=== PATIENT | female | born 1935 | race Caucasian/White ===

== ENCOUNTER 2019-08-13 10:55 | Emergency (ER) | payer MEDICARE, MEDICAID ==
[~2019-08-13] VITALS: Ht 160 cm; Wt 79.1 kg
--- NOTE | 2019-08-13 11:55 | NUR ---
US doppler tech at bedside for study as ordered.
[2019-08-13] MEDS ORDERED: CEPH500C5 PO (12:38)
[2019-08-13] MEDS ORDERED: SULF1TAB49 PO (12:38)
[2019-08-13 13:00] VITALS: BP 132/74
== END 2019-08-13 13:02 | disposition home or self-care (01) ==
LOC: ER 10:56
DX: L03.116 Cellulitis of left lower limb (principal); E03.9 Hypothyroidism, unspecified; Z98.890 Other specified postprocedural states
CPT/HCPCS: 93971; 99284

== ENCOUNTER 2019-09-21 13:27 | Inpatient (IN) | payer MEDICARE, MEDICAID ==
[2019-09-21] VITALS (7 sets, daily range): BP systolic 99–115; BP diastolic 36–54
[~2019-09-21] VITALS: Ht 160 cm; Wt 89.8 kg
[~2019-09-21 13:27] MED LIST: ASPI-611 PO; CALC500T11 PO; CITA10TA9 PO; FAMO20TA8 PO; LEVO75TA7 PO; POLY119P2 PO; SIMV10TA98 PO; TRAM50TA2 PO
[2019-09-21 14:25] LABS: BASOPHILS % (AUTO) 0.8 % (0-1); EOSINOPHILS # (AUTO) 0.1 X10'3 (0-0.9); EOSINOPHILS % (AUTO) 0.9 % (0-6); HEMATOCRIT 36.4 % (35.0-45.0); HEMOGLOBIN 11.7 g/dl (12.0-16.0); LYMPHOCYTES # (AUTO) 0.9 X10'3 (1.1-4.8); LYMPHOCYTES % (AUTO) 14.5 % (21-51); MEAN CORPUSCULAR HEMOGLOBIN 30.1 PG (27.0-31.0); MEAN CORPUSCULAR HGB CONC 32.1 g/dL (33.0-36.5); MEAN CORPUSCULAR VOLUME 93.9 FL (78-98); MEAN PLATELET VOLUME 7.7 FL (7.4-10.4); MONOCYTES # (AUTO) 0.8 X10'3 (0-0.9); MONOCYTES % (AUTO) 13.9 % (2-12); NEUTROPHILS # (AUTO) 4.3 X10'3 (1.8-7.7); NEUTROPHILS % (AUTO) 69.9 % (42-75); PLATELET COUNT 226 X10'3 (140-440); RED BLOOD COUNT 3.88 X10'6 (4.20-5.60); RED CELL DISTRIBUTION WIDTH 15.5 % (11.5-14.5); WHITE BLOOD COUNT 6.1 X10'3 (4.5-11.0)
[2019-09-21 14:39] LABS: D-DIMER 3.72 MG/L FEU (0-0.50); PARTIAL THROMBOPLASTIN TIME 26 SECONDS (22-32)
[2019-09-21 14:40] LABS: ALANINE AMINOTRANSFERASE 13 U/L (12-78); ALBUMIN 2.8 G/DL (3.4-5.0); ALBUMIN/GLOBULIN RATIO 0.7 (1.1-1.5); ALKALINE PHOSPHATASE 91 IU/L (46-116); ANION GAP 4 (8-16); ASPARTATE AMINO TRANSFERASE 40 U/L (10-37); BILIRUBIN,TOTAL 0.3 MG/DL (0.1-1.0); BLOOD UREA NITROGEN 26 MG/DL (7-18); BUN/CREATININE RATIO 29.9 (6.6-38.0); CALCIUM 8.6 MG/DL (8.5-10.1); CHLORIDE 102 MMOL/L (99-107); CREATININE 0.87 MG/DL (0.40-0.90); GLUCOSE 100 MG/DL (70-104); POTASSIUM 4.7 MMOL/L (3.5-5.1); SODIUM 136 MMOL/L (135-145); TOTAL CARBON DIOXIDE 30.2 MMOL/L (24-32); TOTAL PROTEIN 6.8 G/DL (6.4-8.2); eGFR 62 ML/MIN
[2019-09-21 14:47] LABS: MAGNESIUM 2.3 MG/DL (1.5-2.4)
[2019-09-21] MEDS ORDERED: heparin 1,000 UNITS/NS 500ml 500 ML ONE (15:24)
[2019-09-21] MEDS ORDERED: fentaNYL/PF 50MCG/1 ML 2ML syringe ONE (15:24)
[2019-09-21] MEDS ORDERED: midazolam 2 mg/2 ml injection ONE (15:24)
[2019-09-21] MEDS ORDERED: LIDOcaine 1%/PF 5ML 10 MG/ML VIAL ONE (15:24)
[2019-09-21] MEDS ORDERED: iohexol 300mg/ml 100ml inj. ONE (15:25)
[2019-09-21] MEDS ORDERED: iohexol 300 MG/1 ML 50ml polymer ONE (15:25)
[2019-09-21] MEDS ORDERED: LORazepam 2 mg/ml vial IV ONE (15:35)
[2019-09-21] MEDS ORDERED: magnesium hydroxide 30ml (MOM) UD suspension PO PRN (17:10)
[2019-09-21] MEDS ORDERED: morphine 4 MG/ML inj SYRINge IV PRN (17:10)
[2019-09-21] MEDS ORDERED: ondansetron/PF 4mg/2ml inj IV PRN (17:10)
[2019-09-21] MEDS: K, MAG and/or Phos replacement - Verify level? MC SCH (17:10)
[2019-09-21] MEDS ORDERED: acetaminophen 325mg tablet PO PRN ×2 (17:10)
[2019-09-21] MEDS ORDERED: potassium Cl 20 mEq SR tablet PO PRN ×2 (17:10)
--- NOTE | 2019-09-21 17:20 | NUR ---
Patient arrived to floor and placed on bedside monitor. Patient on 2l mask oxygen and answering questions, but slow to answer. TPA and Heparin infusing via sheath on left leg. Physical assessment performed and patient stable. Decreased breath sounds on right lobe, s1s2 heart sounds, distal pulses palpable, left pulse weaker. 2 RN skin check performed.
[2019-09-21] MEDS: tPA-cathflo 2mg/2ml IV flush 4 MG in normal saline 100ml IV soln 100 ML ICATH SCH ×2 (17:49→22:59)
[2019-09-21] MEDS: heparin 1,000 UNITS/NS 500ml 500 ML IV SCH (17:50)
--- NOTE | 2019-09-21 18:02 | NUR ---
Called Dr. Duke to confirm CT order: Overnight oral contrast okay. Also, aware patient incontinent; orders to use PureWick device and use PureWick for Urine sample source. Med rec completed with orders to continue all home orders.
[2019-09-21] MEDS ORDERED: traMADol 50MG tablet PO PRN (18:10)
--- NOTE | 2019-09-21 19:30 | NUR ---
SHEATH TO LEFT POPLITEAL VEIN IS LEAKING. NOTIFIED DR. VARGAS WHO INSTRUCTED TO TURN OFF HEPARIN. TPA STILL RUNNING.
[2019-09-21] MEDS ORDERED: diatr meglu/diatrizoate 30ml oral sol.-(3 dose) bottle PO ONE (21:00)
[2019-09-21] MEDS: calcium carbonate 500mg chew tablet PO SCH (21:10)
[2019-09-21 21:50] LABS: TOTAL PROTEIN,URINE RANDOM < 6.0 MG/DL
[2019-09-21 21:54] LABS: CLARITY,URINE CLEAR (Clear); COLOR,URINE YELLOW (Yellow); GLUCOSE, URINE NEGATIVE (Neg); KETONES,URINE NEGATIVE (Neg); LEUKOCYTE ESTERASE ,URINE TRACE (Neg); NITRITES, URINE NEGATIVE (Neg); OCCULT BLOOD,URINE NEGATIVE (Neg); PH,URINE 6.5 (4.8-8.0); PROTEIN,URINE NEGATIVE (Neg); UROBILINOGEN,URINE 0.2 E.U/dL (0.2-1.0)
[2019-09-21 22:00] LABS: UA COLLECTION TYPE CLN CATCH MIDSTREAM
[2019-09-21 22:01] LABS: BACTERIA,URINE NONE SEEN /HPF (Neg); RBC,URINE NONE SEEN /HPF (0-2); SQUAMOUS EPITHELIAL CELL,UR FEW /LPF (FEW); WBC,URINE 0-4 /HPF (0-4)
[2019-09-22] VITALS (27 sets, daily range): BP systolic 102–143; BP diastolic 37–93
[2019-09-22] MEDS: heparin 1,000 UNITS/NS 500ml 500 ML IV SCH (03:47)
[2019-09-22] MEDS ORDERED: LORazepam 2 mg/ml vial IV ONE (05:25)
[2019-09-22 05:54] LABS: BASOPHILS % (AUTO) 0.6 % (0-1); EOSINOPHILS # (AUTO) 0.1 X10'3 (0-0.9); HEMOGLOBIN 10.7 g/dl (12.0-16.0); LYMPHOCYTES # (AUTO) 0.7 X10'3 (1.1-4.8); MEAN PLATELET VOLUME 7.8 FL (7.4-10.4); MONOCYTES # (AUTO) 0.8 X10'3 (0-0.9); MONOCYTES % (AUTO) 14.8 % (2-12); PLATELET COUNT 210 X10'3 (140-440); RED CELL DISTRIBUTION WIDTH 15.5 % (11.5-14.5)
[2019-09-22 05:57] LABS: EOSINOPHILS % (AUTO) 1.1 % (0-6); LYMPHOCYTES % (AUTO) 13.7 % (21-51); MEAN CORPUSCULAR HEMOGLOBIN 30.4 PG (27.0-31.0); MEAN CORPUSCULAR HGB CONC 32.4 g/dL (33.0-36.5); MEAN CORPUSCULAR VOLUME 93.7 FL (78-98); NEUTROPHILS # (AUTO) 3.7 X10'3 (1.8-7.7); NEUTROPHILS % (AUTO) 69.8 % (42-75); RED BLOOD COUNT 3.52 X10'6 (4.20-5.60); WHITE BLOOD COUNT 5.3 X10'3 (4.5-11.0)
[2019-09-22 06:16] LABS: PARTIAL THROMBOPLASTIN TIME 27 SECONDS (22-32)
[2019-09-22 06:38] LABS: ALANINE AMINOTRANSFERASE 14 U/L (12-78); ALBUMIN 2.6 G/DL (3.4-5.0); ALBUMIN/GLOBULIN RATIO 0.7 (1.1-1.5); ALKALINE PHOSPHATASE 88 IU/L (46-116); ANION GAP 5 (8-16); ASPARTATE AMINO TRANSFERASE 42 U/L (10-37); BILIRUBIN,TOTAL 0.4 MG/DL (0.1-1.0); BLOOD UREA NITROGEN 21 MG/DL (7-18); BUN/CREATININE RATIO 25.9 (6.6-38.0); CALCIUM 8.2 MG/DL (8.5-10.1); CHLORIDE 103 MMOL/L (99-107); CREATININE 0.81 MG/DL (0.40-0.90); GLUCOSE 103 MG/DL (70-104); LACTATE DEHYDROGENASE 293 U/L (81-234); MAGNESIUM 2.3 MG/DL (1.5-2.4); PHOSPHORUS 3.1 MG/DL (2.3-4.5); POTASSIUM 4.4 MMOL/L (3.5-5.1); SODIUM 137 MMOL/L (135-145); TOTAL CARBON DIOXIDE 29.2 MMOL/L (24-32); TOTAL PROTEIN 6.3 G/DL (6.4-8.2); eGFR 67 ML/MIN
[2019-09-22] MEDS: calcium carbonate 500mg chew tablet PO SCH ×2 (07:16→19:53)
[2019-09-22] MEDS: atorvastatin 10mg tablet PO SCH (07:17)
[2019-09-22] MEDS: famotidine 20mg tablet PO SCH (07:17)
[2019-09-22] MEDS: levoTHYROXINE 75mcg tablet PO SCH (07:17)
[2019-09-22] MEDS: aspirin 81mg tablet.DR PO SCH (07:17)
[2019-09-22] MEDS: CITALOpram 10mg tablet PO SCH (07:18)
[2019-09-22] MEDS: polyethylene glycol 3350 17gm powd pack PO SCH (07:29)
[2019-09-22] MEDS: K, MAG and/or Phos replacement - Verify level? MC SCH (08:00)
[2019-09-22] MEDS ORDERED: iohexol 300mg/ml 100ml inj. ONE ×3 (08:23→10:34)
[2019-09-22] MEDS: tPA-cathflo 2mg/2ml IV flush 4 MG in normal saline 100ml IV soln 100 ML ICATH SCH ×2 (08:36→15:17)
[2019-09-22] MEDS: morphine 2 MG/ML inj. syringe IV PRN ×2 (08:40→19:54)
[2019-09-22] MEDS ORDERED: fentaNYL/PF 50MCG/1 ML 2ML syringe ONE (08:43)
[2019-09-22] MEDS ORDERED: midazolam 2 mg/2 ml injection ONE (08:43)
[2019-09-22] MEDS ORDERED: heparin 1,000 UNITS/NS 500ml 500 ML ONE (08:44)
[2019-09-22] MEDS: apixaban 5mg tablet PO SCH ×2 (12:47→19:53)
--- NOTE | 2019-09-22 17:21 | NUR ---
patient has not voided in the last 6 hours. she also has not eaten or drank today and is not on IV fluids. Bladder scan shows 388. Called Dr Duke. Orders to watch her for now since her kidney function looks ok and she does have some urine in her bladder.
[2019-09-22] MEDS: LORazepam 2 mg/ml vial IV PRN (17:55)
--- NOTE | 2019-09-22 22:00 | NUR ---
late entry, pt medicated for pain with good effects, hs cares given pt tolerated well.
--- NOTE | 2019-09-22 22:45 | NUR ---
1830 I have received report and assumed care of pt. pt resting in bed rise and fall of chest cavity equile and symmetrical. vs as charted. left leg remains slightly more swollen then the right, dorsals pulses are Doppler but strong. pt denies numbness and tingling.
[2019-09-23] VITALS (23 sets, daily range): BP systolic 97–120; BP diastolic 33–62
--- NOTE | 2019-09-23 01:30 | NUR ---
no changes in condition noted pt resting no s/sx of distress noted
--- NOTE | 2019-09-23 01:46 | NUR ---
report given to receiving Rn plan of care reviewed
--- NOTE | 2019-09-23 01:46 | NUR ---
Patient in room CICU 2011. I have received report from Francine Lal RN and had the opportunity to ask questions and assume patient care. Patient resting comfortably without signs of distress. Pedal pulses present to palpation bilaterally. Left leg noted to be larger than the right. Will continue to monitor.
[2019-09-23 05:39] LABS: BASOPHILS % (AUTO) 0.6 % (0-1); EOSINOPHILS # (AUTO) 0.1 X10'3 (0-0.9); EOSINOPHILS % (AUTO) 1.2 % (0-6); HEMATOCRIT 30.2 % (35.0-45.0); HEMOGLOBIN 9.8 g/dl (12.0-16.0); LYMPHOCYTES # (AUTO) 0.9 X10'3 (1.1-4.8); LYMPHOCYTES % (AUTO) 13.2 % (21-51); MEAN CORPUSCULAR HEMOGLOBIN 30.4 PG (27.0-31.0); MEAN CORPUSCULAR HGB CONC 32.5 g/dL (33.0-36.5); MEAN CORPUSCULAR VOLUME 93.5 FL (78-98); MEAN PLATELET VOLUME 7.7 FL (7.4-10.4); MONOCYTES # (AUTO) 1.1 X10'3 (0-0.9); MONOCYTES % (AUTO) 16.9 % (2-12); NEUTROPHILS # (AUTO) 4.6 X10'3 (1.8-7.7); NEUTROPHILS % (AUTO) 68.1 % (42-75); PLATELET COUNT 198 X10'3 (140-440); RED BLOOD COUNT 3.23 X10'6 (4.20-5.60); RED CELL DISTRIBUTION WIDTH 15.6 % (11.5-14.5); WHITE BLOOD COUNT 6.7 X10'3 (4.5-11.0)
[2019-09-23 05:45] LABS: ALANINE AMINOTRANSFERASE 11 U/L (12-78); ALBUMIN 2.5 G/DL (3.4-5.0); ALBUMIN/GLOBULIN RATIO 0.7 (1.1-1.5); ALKALINE PHOSPHATASE 82 IU/L (46-116); ANION GAP 4 (8-16); ASPARTATE AMINO TRANSFERASE 45 U/L (10-37); BILIRUBIN,TOTAL 0.5 MG/DL (0.1-1.0); BLOOD UREA NITROGEN 17 MG/DL (7-18); BUN/CREATININE RATIO 19.5 (6.6-38.0); CALCIUM 8.3 MG/DL (8.5-10.1); CHLORIDE 104 MMOL/L (99-107); CREATININE 0.87 MG/DL (0.40-0.90); GLUCOSE 103 MG/DL (70-104); MAGNESIUM 2.4 MG/DL (1.5-2.4); PHOSPHORUS 3.6 MG/DL (2.3-4.5); POTASSIUM 4.4 MMOL/L (3.5-5.1); SODIUM 138 MMOL/L (135-145); eGFR 62 ML/MIN
--- NOTE | 2019-09-23 06:26 | NUR ---
Problems reprioritized. Patient report given, questions answered & plan of care reviewed with JAYCOB Little.
--- NOTE | 2019-09-23 06:31 | NUR ---
Patient in room CICU 2011. I have received report from JAYCOB Kauffman and had the opportunity to ask questions and assume patient care. Patient currently resting in bed, VSS, no acute dsitress, will continue to monitor.
[2019-09-23] MEDS: K, MAG and/or Phos replacement - Verify level? MC SCH (08:00)
[2019-09-23] MEDS: levoTHYROXINE 75mcg tablet PO SCH (08:21)
[2019-09-23] MEDS: aspirin 81mg tablet.DR PO SCH (08:21)
[2019-09-23] MEDS: famotidine 20mg tablet PO SCH (08:21)
[2019-09-23] MEDS: apixaban 5mg tablet PO SCH ×2 (08:21→20:22)
[2019-09-23] MEDS: atorvastatin 10mg tablet PO SCH (08:21)
[2019-09-23] MEDS: CITALOpram 10mg tablet PO SCH (08:21)
[2019-09-23] MEDS: calcium carbonate 500mg chew tablet PO SCH ×2 (08:22→20:21)
[2019-09-23] MEDS: polyethylene glycol 3350 17gm powd pack PO SCH (08:22)
[2019-09-23] MEDS: LORazepam 2 mg/ml vial IV PRN (08:38)
--- NOTE | 2019-09-23 18:21 | NUR ---
Problems reprioritized. Patient report given, questions answered & plan of care reviewed with JAYCOB Kauffman.
--- NOTE | 2019-09-23 18:22 | NUR ---
Patient in room CICU 2011. I have received report from JAYCOB Little and had the opportunity to ask questions and assume patient care.
--- NOTE | 2019-09-23 18:40 | NUR ---
Patient resting in bed. Equal rise and fall of chest, in no signs of distress. Lung sound clear and equal. Patient awakens to verbal, is in good spirits. Patient does not want to eat dinner at this time. Will save try for a later time. Pulses intact via palpation to pedal pulses.
--- NOTE | 2019-09-23 20:45 | NUR ---
While turning patient to the left side to change linen, Patient states " Ouch!" When asked what was causing her pain patient tearful and states " my side" and gestures to her abdomen on her left lower side. Patient then states "I was so good this morning, why did you hurt me?" Explained to patient that we did not mean to cause her pain. Patient stated again "but I was so good." Discussed with charger who will place a social professionals consult.
[2019-09-24] VITALS (24 sets, daily range): BP systolic 100–134; BP diastolic 32–110
--- NOTE | 2019-09-24 01:33 | NUR ---
Patient picking at IV to right arm. Placed fabric arm sleeve over IV site.
--- NOTE | 2019-09-24 04:38 | NUR ---
0400 Patient c/o wanting to urinate but not being able to. Wick catheter in place. Patient also expressed the need to have a bowel movement. Placed on bedpan without success. Bladder scan was completed showing 325ml urine. Milk of Mag was administered as ordered for constipation. Patient able to urinate some after repositioning.
--- NOTE | 2019-09-24 05:00 | NUR ---
Patient suddenly agitated, calling out, shouting she "wants to go home!" crying not able to calm down. Ativan administered. Patient continued to become increasingly agitated, vital signs with bigeminy heart rate in the 110's. Oxygen saturation in the 80's. Morphine administered patient complaining of abdominal pain, unable to describe pain. Patient able to relax and rest. New IV to right forearm prior to morphine administration. Patient pulling at IV on left prior to IV becoming puffy. Patient placed on oxygen via nasal cannula at 4 lpm with increased in oxygen saturation to 99%. heart rate improved.
[2019-09-24 05:20] LABS: BASOPHILS % (AUTO) 0.4 % (0-1); EOSINOPHILS # (AUTO) 0.1 X10'3 (0-0.9); EOSINOPHILS % (AUTO) 1.5 % (0-6); HEMATOCRIT 30.4 % (35.0-45.0); HEMOGLOBIN 9.8 g/dl (12.0-16.0); LYMPHOCYTES # (AUTO) 0.8 X10'3 (1.1-4.8); LYMPHOCYTES % (AUTO) 11.6 % (21-51); MEAN CORPUSCULAR HEMOGLOBIN 30.2 PG (27.0-31.0); MEAN CORPUSCULAR HGB CONC 32.3 g/dL (33.0-36.5); MEAN CORPUSCULAR VOLUME 93.7 FL (78-98); MEAN PLATELET VOLUME 7.8 FL (7.4-10.4); MONOCYTES # (AUTO) 0.9 X10'3 (0-0.9); MONOCYTES % (AUTO) 13.2 % (2-12); NEUTROPHILS # (AUTO) 5.3 X10'3 (1.8-7.7); NEUTROPHILS % (AUTO) 73.3 % (42-75); PLATELET COUNT 209 X10'3 (140-440); RED BLOOD COUNT 3.24 X10'6 (4.20-5.60); RED CELL DISTRIBUTION WIDTH 15.6 % (11.5-14.5); WHITE BLOOD COUNT 7.2 X10'3 (4.5-11.0)
[2019-09-24] MEDS: LORazepam 2 mg/ml vial IV PRN ×2 (05:21→20:48)
[2019-09-24 05:28] LABS: PARTIAL THROMBOPLASTIN TIME 42 SECONDS (22-32)
[2019-09-24 06:04] LABS: GLUCOSE 144 MG/DL (70-104); SODIUM 136 MMOL/L (135-145)
[2019-09-24 06:05] LABS: ALANINE AMINOTRANSFERASE 14 U/L (12-78); ALBUMIN 2.6 G/DL (3.4-5.0); ALBUMIN/GLOBULIN RATIO 0.7 (1.1-1.5); ALKALINE PHOSPHATASE 76 IU/L (46-116); ANION GAP 5 (8-16); ASPARTATE AMINO TRANSFERASE 41 U/L (10-37); BILIRUBIN,TOTAL 0.5 MG/DL (0.1-1.0); BLOOD UREA NITROGEN 17 MG/DL (7-18); BUN/CREATININE RATIO 19.8 (6.6-38.0); CALCIUM 8.3 MG/DL (8.5-10.1); CHLORIDE 102 MMOL/L (99-107); CREATININE 0.86 MG/DL (0.40-0.90); MAGNESIUM 2.3 MG/DL (1.5-2.4); POTASSIUM 4.1 MMOL/L (3.5-5.1); TOTAL CARBON DIOXIDE 28.8 MMOL/L (24-32); TOTAL PROTEIN 6.3 G/DL (6.4-8.2); eGFR 63 ML/MIN
[2019-09-24] MEDS: morphine 2 MG/ML inj. syringe IV PRN ×2 (06:05→11:15)
--- NOTE | 2019-09-24 06:20 | NUR ---
Problems reprioritized. Patient report given, questions answered & plan of care reviewed with JAYCOB Holt.
--- NOTE | 2019-09-24 06:30 | NUR ---
Patient in room CICU 2011. I have received report from mathew madsen and had the opportunity to ask questions and assume patient care.
[2019-09-24] MEDS: K, MAG and/or Phos replacement - Verify level? MC SCH (08:00)
[2019-09-24] MEDS: CITALOpram 10mg tablet PO SCH (08:22)
[2019-09-24] MEDS: famotidine 20mg tablet PO SCH (08:22)
[2019-09-24] MEDS: calcium carbonate 500mg chew tablet PO SCH ×2 (08:23→20:32)
[2019-09-24] MEDS: polyethylene glycol 3350 17gm powd pack PO SCH (08:23)
[2019-09-24] MEDS: aspirin 81mg tablet.DR PO SCH (08:23)
[2019-09-24] MEDS: atorvastatin 10mg tablet PO SCH (08:23)
[2019-09-24] MEDS: apixaban 5mg tablet PO SCH ×2 (08:23→20:32)
[2019-09-24] MEDS: levoTHYROXINE 75mcg tablet PO SCH (08:25)
--- NOTE | 2019-09-24 12:14 | NUR ---
TEMP 101.8 AX. IN TO GIVE TYLENOL PO. SITTING UOP IN BED, Addendum: 09/24/19 at 1215 by Pancho Borja RN SITTING U7P IN BED, ATTEMPT TO GIVE SIP OF WATER VIA SRTRA Addendum: 09/24/19 at 1218 by Pancho Borja RN VIA STRAW, COUGH WITH TRYING TO SWALLOW. ATTEMPT X3 WITH SAME RESULTS, VERY SMALL AMT OF WATER. TRYING VERY SMALL AMT APPLESAUCE WITH SAME RESULT. Unable to adm tylenol. Dr Gregory notified. order to dc morphine. no further orders.
--- NOTE | 2019-09-24 18:07 | NUR ---
Problems reprioritized. Patient report given, questions answered & plan of care reviewed with mtahew madsen.
--- NOTE | 2019-09-24 18:10 | NUR ---
Patient in room CICU 2011. I have received report from JAYCOB Holt and had the opportunity to ask questions and assume patient care. Patient appears to be resting in bed at time of report, patient with no signs of distress. Oxygen in place via nasal cannula at 2 lpm. Chest with equal rise and fall respiratory rate 14.
--- NOTE | 2019-09-24 20:30 | NUR ---
Patient very anxious yelling "I want to go home!" Patient crying. Attempted to distract patient by finding a western movie for her to watch, visiting with patient, using calm approach, this was without success. Ativan administered as ordered, patient able to calm down. Patient turned and repositioned. wick catheter in place.
[2019-09-24] MEDS ORDERED: normal saline 1000ml 1,000 ML IV SCH (22:35)
[2019-09-25] VITALS (12 sets, daily range): BP systolic 97–182; BP diastolic 33–76
[2019-09-25] MEDS: LORazepam 2 mg/ml vial IV PRN ×2 (04:49→08:27)
[2019-09-25 05:57] LABS: BASOPHILS % (AUTO) 0.4 % (0-1); EOSINOPHILS # (AUTO) 0.1 X10'3 (0-0.9); HEMATOCRIT 29.5 % (35.0-45.0); HEMOGLOBIN 9.6 g/dl (12.0-16.0); LYMPHOCYTES # (AUTO) 1.1 X10'3 (1.1-4.8); LYMPHOCYTES % (AUTO) 14.7 % (21-51); MEAN CORPUSCULAR HEMOGLOBIN 30.8 PG (27.0-31.0); MEAN CORPUSCULAR HGB CONC 32.7 g/dL (33.0-36.5); MEAN CORPUSCULAR VOLUME 94.4 FL (78-98); MEAN PLATELET VOLUME 7.8 FL (7.4-10.4); MONOCYTES # (AUTO) 1.2 X10'3 (0-0.9); MONOCYTES % (AUTO) 15.9 % (2-12); NEUTROPHILS # (AUTO) 5.2 X10'3 (1.8-7.7); PLATELET COUNT 188 X10'3 (140-440); RED BLOOD COUNT 3.12 X10'6 (4.20-5.60); RED CELL DISTRIBUTION WIDTH 15.5 % (11.5-14.5); WHITE BLOOD COUNT 7.6 X10'3 (4.5-11.0)
--- NOTE | 2019-09-25 06:00 | NUR ---
Patient in room CICU 2011. I have received report from JAYCOB Castro and had the opportunity to ask questions and assume patient care.
[2019-09-25 06:05] LABS: ANION GAP 2 (8-16); BLOOD UREA NITROGEN 15 MG/DL (7-18); BUN/CREATININE RATIO 18.3 (6.6-38.0); CHLORIDE 104 MMOL/L (99-107); CREATININE 0.82 MG/DL (0.40-0.90); GLUCOSE 92 MG/DL (70-104); POTASSIUM 4.4 MMOL/L (3.5-5.1); SODIUM 135 MMOL/L (135-145); TOTAL CARBON DIOXIDE 29.4 MMOL/L (24-32)
[2019-09-25 06:06] LABS: ALANINE AMINOTRANSFERASE 9 U/L (12-78); ALBUMIN 2.2 G/DL (3.4-5.0); ALBUMIN/GLOBULIN RATIO 0.6 (1.1-1.5); ALKALINE PHOSPHATASE 68 IU/L (46-116); ASPARTATE AMINO TRANSFERASE 35 U/L (10-37); BILIRUBIN,TOTAL 0.6 MG/DL (0.1-1.0); CALCIUM 8.3 MG/DL (8.5-10.1); MAGNESIUM 2.3 MG/DL (1.5-2.4); PHOSPHORUS 3.4 MG/DL (2.3-4.5); eGFR 66 ML/MIN
--- NOTE | 2019-09-25 06:21 | NUR ---
Problems reprioritized. Patient report given, questions answered & plan of care reviewed with JAYCOB Bentley.
[2019-09-25 07:14] LABS: PLATELET ESTIMATE NORMAL; TOTAL CELLS COUNTED 100
[2019-09-25] MEDS: K, MAG and/or Phos replacement - Verify level? MC SCH (08:00)
[2019-09-25] MEDS: famotidine 20mg tablet PO SCH (08:01)
[2019-09-25] MEDS: polyethylene glycol 3350 17gm powd pack PO SCH (08:01)
[2019-09-25] MEDS: atorvastatin 10mg tablet PO SCH (08:01)
[2019-09-25] MEDS: aspirin 81mg tablet.DR PO SCH (08:01)
[2019-09-25] MEDS: CITALOpram 10mg tablet PO SCH (08:01)
[2019-09-25] MEDS: calcium carbonate 500mg chew tablet PO SCH (08:01)
[2019-09-25] MEDS: levoTHYROXINE 75mcg tablet PO SCH (08:01)
[2019-09-25] MEDS: apixaban 5mg tablet PO SCH (08:01)
--- NOTE | 2019-09-25 09:00 | NUR ---
Patient in [facility], HR 113. BP 170/76. PRN ativan given due to agitation, crying, anxiety. No report of pain per patient. Dr. Duke aware, no new orders received.
[2019-09-25] MEDS ORDERED: APIX5TAB3 PO (09:07)
[2019-09-25 11:10] LABS: A/G RATIO 0.9 (0.7-1.7); ALBUMIN 2.6 g/dL (2.9-4.4); BETA GLOBULIN 1.2 g/dL (0.7-1.3); GAMMA GLOBULIN 0.8 g/dL (0.4-1.8); M-SPIKE Not Observed g/dL (Not Observed); PROTEIN, TOTAL, SERUM 5.6 g/dL (6.0-8.5)
--- NOTE | 2019-09-25 11:55 | NUR ---
Patient VSS, stable for transfer per MD orders, PIV discontinued cannula intact, clean, dry dressing in place. surveillance monitor removed. Patient taken to lobby with all belongings and discharge paperwork by RN and, Physical Therapist, and 2 PT aides; receiving RN refused to take patient to home facility due to ALOC. Since patient was discharged, patient taken to ER per Dr. Duke's orders.
--- NOTE | 2019-09-25 12:59 | NUR ---
Ted consult: Ted Chino; skin intact. Addendum: 09/25/19 at [address] Amended: Links added.
[2019-09-25] MEDS ORDERED: APIX5TAB5 PO (19:45)
[2019-09-29] MEDS ORDERED: apixaban 5mg tablet PO SCH (08:00)
== END 2019-09-25 11:00 | disposition home or self-care (01) | DRG 272 ==
LOC: ER 13:27 → ED HOLD 17:09 → CICU 2S 17:29
PROVIDERS: ADMIT Internal Medicine Critical Care Medicine; ATTEND Internal Medicine Critical Care Medicine
PROC: B51C1ZZ Fluoroscopy of Left Lower Extremity Veins using Low Osmolar Contrast (ICD-10-PCS; 2019-09-21)
PROC: 3E03317 Introduction of Other Thrombolytic into Peripheral Vein, Percutaneous Approach (ICD-10-PCS; 2019-09-21)
PROC: BW251ZZ Computerized Tomography (CT Scan) of Chest, Abdomen and Pelvis using Low Osmolar Contrast (ICD-10-PCS; principal; 2019-09-22)
PROC: 06CG3ZZ Extirpation of Matter from Left External Iliac Vein, Percutaneous Approach (ICD-10-PCS; 2019-09-22)
PROC: 047J3ZZ Dilation of Left External Iliac Artery, Percutaneous Approach (ICD-10-PCS; 2019-09-22)
PROC: 047L3ZZ Dilation of Left Femoral Artery, Percutaneous Approach (ICD-10-PCS; 2019-09-22)
PROC: 067G3ZZ Dilation of Left External Iliac Vein, Percutaneous Approach (ICD-10-PCS; 2019-09-22)
PROC: 067N3ZZ Dilation of Left Femoral Vein, Percutaneous Approach (ICD-10-PCS; 2019-09-22)
PROC: 06CN3ZZ Extirpation of Matter from Left Femoral Vein, Percutaneous Approach (ICD-10-PCS; 2019-09-22)
PROC: 04CJ3ZZ Extirpation of Matter from Left External Iliac Artery, Percutaneous Approach (ICD-10-PCS; 2019-09-22)
PROC: 04CL3ZZ Extirpation of Matter from Left Femoral Artery, Percutaneous Approach (ICD-10-PCS; 2019-09-22)
DX: I82.412 Acute embolism and thrombosis of left femoral vein (principal); E03.9 Hypothyroidism, unspecified; F41.9 Anxiety disorder, unspecified; Z96.652 Presence of left artificial knee joint; F29 Unspecified psychosis not due to a substance or known physiological condition; R59.9 Enlarged lymph nodes, unspecified; Z79.01 Long term (current) use of anticoagulants; Z79.899 Other long term (current) drug therapy; Z79.82 Long term (current) use of aspirin
CPT/HCPCS: 36005; 36415; 37212; 37214; 37248; 71260; 74177; 75820; 76937; 80053; 81001; 82570; 82948; 83615; 83735; 83880; 84100; 84145; 84155; 84156; 84165; 84443; 85025; 85379; 85384; 85610; 85730; 87081; 97110; 97161; 97530; 97535; 99152; 99153; 99285; C1725; C1729; C1751; C1769; C1887; C1894; G0378; J1644; J2060; J2250; J2270; J2997; J3010; J7030; Q9963; Q9967

== ENCOUNTER 2019-10-24 11:32 | Day surgery (SDC) | payer MEDICARE, MEDICAID ==
[~2019-10-24 11:32] MED LIST changes: +APIX5TAB5 PO
[2019-10-24 11:59] VITALS: BP 127/59
[2019-10-24] MEDS ORDERED: LORA-269 PO (12:05)
[2019-10-24 12:25] VITALS: BP 146/75
[2019-10-24 12:36] VITALS: BP 143/74
[2019-10-24 12:43] VITALS: BP 139/59
[2019-10-24 13:00] VITALS: BP 122/68
== END 2019-10-24 13:20 ==
LOC: SSTAY O 11:32
PROVIDERS: ATTEND Radiology Vascular & Interventional Radiology
DX: R59.0 Localized enlarged lymph nodes (principal); Z79.82 Long term (current) use of aspirin; Z79.899 Other long term (current) drug therapy; Z11.59 Encounter for screening for other viral diseases
CPT/HCPCS: 36415; 38505; 76942; 88184; 88185; 88341; 88342; U0003; 88305; 88360